=== PATIENT | male | born 1950 | race Caucasian/White ===

== ENCOUNTER 2024-04-22 10:55 | Emergency (ER) | payer OTHER ==
[2024-04-22 11:08] VITALS: RESP 16; TEMP 98.4; BMI 24.1
[2024-04-22 12:47] LABS: BASO % 0.4 % (0-2.0); EOS % 0.5 % (0-4.5); HEMATOCRIT 41.1 % (35.4-49); HEMOGLOBIN 13.7 GM/dL (11.7-16.9); LYMPH % 10.8 % (8-40); MCH 28.9 pg (25.7-33.7); MCHC 33.4 g/dl (32.0-35.9); MEAN CELL VOLUME 86.7 fl (80-96); MEAN PLT VOLUME 8.2 fl (7.5-11.1); NEUT % 80.3 % (42.8-82.8); PLATELET COUNT 194 10^3/uL (134-434); RBC 4.74 M/mm3 (4.00-5.60); RDW 13.4 % (11.9-15.9); WHITE BLOOD COUNT 7.3 K/mm3 (4.0-10.0)
[2024-04-22 12:54] LABS: INR 1.15 (0.83-1.09); PROTHROMBIN TIME (PATIENT) 13.2 SEC (9.7-13.0)
[2024-04-22 12:57] LABS: ACTIVATED PTT 29.8 SECONDS (25.2-36.5)
[2024-04-22 13:00] LABS: URINE APPEARANCE Clear; URINE BILIRUBIN Negative (NEGATIVE); URINE COLOR Yellow; URINE GLUCOSE (UA) 3+ (NEGATIVE); URINE KETONE Negative (NEGATIVE); URINE LEUK ESTERASE Negative (NEGATIVE); URINE NITRITE Negative (NEGATIVE); URINE PROTEIN Negative (NEGATIVE); URINE UROBILINOGEN 0.2 mg/dL (0.2-1.0)
[2024-04-22 13:01] LABS: POTASSIUM 4.3 mmol/L (3.5-5.1)
[2024-04-22 13:04] LABS: ALBUMIN 3.6 g/dl (3.4-5.0); BLOOD UREA NITROGEN 19.3 mg/dL (7-18); CALCIUM 9.7 mg/dL (8.5-10.1)
[2024-04-22 13:07] LABS: CREATININE 1.2 mg/dL (0.55-1.3)
[2024-04-22 13:09] LABS: BILIRUBIN,TOTAL 0.4 mg/dL (0.2-1); TOT PROT 7.8 g/dl (6.4-8.2)
[2024-04-22 13:10] LABS: EPI CELLS 0.5 /uL (0-25.1); HYALINE CASTS 0 /uL (0-3.1); URINE BACTERIA 0.9 /uL (0-1359); URINE RBC 4.9 /uL (0-23.9); URINE WBC 1.5 /uL (0-25.8)
[2024-04-22 14:01] LABS: HIV INTERPRETATION NEGATIVE (NEGATIVE)
[2024-04-22 14:35] VITALS: BP 168/84
[2024-04-22 14:36] VITALS: PULSE 95
== END 2024-04-22 15:09 | disposition home or self-care (01) ==
LOC: JER 10:55
DX: R41.0 Disorientation, unspecified (principal)
CPT/HCPCS: 36415; 70450-TC; 71045-TC-FY; 80053; 81003; 82962; 84484; 85025; 85610; 85730; 86803; 87086; 87389; 93005; 93010; 99285-25